=== PATIENT | male | born 1975 | race Asian ===

== ENCOUNTER 2022-07-05 08:24 | Emergency (ER) | payer OTHER, SELFPAY ==
--- NOTE | ~2022-07-05 | XR_ITS ---
EXAMINATION: XR finger 2nd RT min 2V DATE: 07/05/2022 08:53 INDICATION: Right hand second digit injury and pain. TECHNIQUE: 4 views of right hand second digit were obtained. COMPARISON: None. FINDINGS: Bone alignment is normal. No fracture. 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 IMPRESSION: 1. No fracture. Reviewed, dictated and finalized at location A. IMPRESSION: 1. No fracture.
[2022-07-05 08:33] VITALS: BP 118/71; PULSE 60; RESP 16; TEMP 35.6; O2SAT 100
--- NOTE | 2022-07-05 08:41 | ED.UPPEXIN ---
HPI - Extremity Injury (Upper) General Chief Complaint: Extremity Injury, Upper Stated Complaint: Right hand finger injury Time Seen by Provider: 07/05/22 08:41 Source: patient Mode of arrival: ambulatory Limitations: no limitations History of Present Illness HPI narrative: 46 y/o male presented for c/o right index finger pain after 2 injuries. States first injury occured about 3 months ago, hitting the finger on bleachers. A few weeks ago he states he re-injured the finger striking it on 'something.' Has been wearing metal finger splint for the last few weeks. States splint helps pain, when splint is removed and he bends the finger the pain increases. Reports decreased ROM and mild swelling. Not taking pain meds. Rates pain 4/10. Denies numbness or tingling. Related Data Home Medications Medication Instructions Recorded Confirmed No Home Medications 07/05/22 07/05/22 Allergies Allergy/AdvReac Type Severity Reaction Status Date / Time No Known Allergies Allergy Verified 07/05/22 08:37 Review of Systems Review of Systems: CONSTITUTIONAL: Denies body aches, fever, chills EYES: Denies visual changes ENT: Denies rhinorrhea, congestion CARDIOVASCULAR: Denies chest pain RESPIRATORY: Denies cough or dyspnea. GASTROINTESTINAL: Denies abdominal pain, nausea, vomiting, or diarrhea. SKIN: Denies rash, itching, or wounds. MUSCULOSKELETAL: Reports finger pain NEUROLOGIC: Denies headache All systems reviewed & are unremarkable except as noted in HPI and below PMFSH Comments At time of signature, I have reviewed and agree with nursing past medical, surgical, social and family history unless otherwise noted. Please see nursing chart for further information. There is no relevant family history pertinent to the presenting complaint Exam Narrative: GENERAL: Well-appearing CHEST: Speaks in full sentences. No respiratory distress. HEART: Regular rate and rhythm. Normal and equal peripheral pulses. EXTREMITIES: Right 2nd digit with mild swelling; Decreased ROM at PIP and DIP; nontender with palpation over the joints. no bruising, 2nd digit has normal strength and sensation, No open wounds, or obvious deformity; alignment normal, pulse palpable and equal bilaterally, skin warm, dry, pink. Capillary refill less than 3 seconds. SKIN: Warm, dry, no rash. NEURO: Alert and oriented x3. PSYCH: Normal mood and affect Course Course Emergency Course: Patient is aware of diagnosis, understands and agrees to treatment plan. Anticipatory guidance given. Patient agrees to follow-up as directed and is aware of reasons to seek care at the emergency department. Portions of this record may have been created with voice recognition software Level of Care: Express Care Visit Vital Signs Vital signs: Vital Signs Temperature 96.1 F L 07/05/22 08:33 Pulse Rate 60 07/05/22 08:33 Respiratory Rate 16 07/05/22 08:33 Blood Pressure 118/71 07/05/22 08:33 Pulse Oximetry 100 07/05/22 08:33 Oxygen Delivery Room Air 07/05/22 08:33 Temperature 96.1 F L 07/05/22 08:33 Pulse Rate 60 07/05/22 08:33 Respiratory Rate 16 07/05/22 08:33 Blood Pressure 118/71 07/05/22 08:33 Pulse Oximetry 100 07/05/22 08:33 Oxygen Delivery Room Air 07/05/22 08:33 Reviewed MDM - Extremity Injury (Upper) MDM Narrative Medical decision making narrative: Results of x-ray reviewed with patient. Advised supportive measures and follow-up with PCP/hand specialist as needed. He is appropriate for outpatient treatment and follow up. Differential Diagnosis Differential diagnosis: Likely finger sprain and dislocation of finger Imaging Data Radiologist's impression: Ordering Physician: Ángela Cooley APRN Date of Service: 07/05/22 Procedure(s): XR finger 2nd RT min 2V Accession Number(s): [id number] cc: Ángela Cooley APRN; [employer] HANDLER PHYSICIAN~ EXAMINATION: XR finger 2nd RT min 2V DATE: 07/05/2022 08:53 INDICATION: Right
== END 2022-07-05 09:17 | disposition home or self-care (01) ==
PROVIDERS: Emergency Provider Nurse Practitioner Family
DX: S63.610A Unspecified sprain of right index finger, initial encounter (principal); W22.8XXA Striking against or struck by other objects, initial encounter
CPT/HCPCS: 73140; 99203; G0463

== ENCOUNTER → 2022-11-01 13:36 | Outpatient (CLI) | payer OTHER, SELFPAY ==
--- NOTE | ~2022-11-01 | XR_ITS ---
XR lumbar spine 2-3V DATE: 11/01/2022 15:09 INDICATION: Mid low back pain TECHNIQUE: AP, lateral, coned lateral lumbosacral views COMPARISON: None FINDINGS: There is slight lumbar levoscoliosis. No fracture or bone destruction is detected. Included lower thoracic and lumbar pedicles are intact. Lumbar and lumbosacral interspaces are well preserved. The sacroiliac joints are intact. IMPRESSION: Slight levoscoliosis Reviewed, dictated and finalized at location B. Y SALES AUDIT CLERK IMPRESSION: Slight levoscoliosis
--- NOTE | ~2022-11-01 | XR_ITS ---
EXAMINATION: XR shoulder RT min 2V DATE: 11/01/2022 14:06 INDICATION: Chronic right shoulder pain TECHNIQUE: AP internally and externally rotated, AP oblique externally rotated and axillary views of the right shoulder were obtained. COMPARISON: None FINDINGS: Normal alignment. No fracture. Glenohumeral joint is normal. Minimal acromioclavicular osteoarthriti s. Soft tissues are unremarkable. The visualized portions of the right lung are clear. IMPRESSION: Minimal right acromioclavicular osteoarthritis. Reviewed, dictated and finalized at location A. T[employer] ACCESS MANAGEMENT ARCHITECT
== END ==
PROVIDERS: PCP Nurse Practitioner Family; Visit Provider Nurse Practitioner Family
DX: M19.011 Primary osteoarthritis, right shoulder (principal); M41.86 Other forms of scoliosis, lumbar region
CPT/HCPCS: 72100; 73030